=== PATIENT | male | born 1980 | race Caucasian/White ===

== ENCOUNTER 2024-03-17 14:11 | Outpatient (OUT) | payer OTHER, SELFPAY ==
[2024-03-17 15:31] LABS: Basophils Percent Auto 0.3 % (0.2-2.0); Eosinophils Absolute Auto 0.2 10^3/uL (0.0-0.7); Hematocrit 44.3 % (42.0-54.0); Hemoglobin 15.4 g/dL (14.0-18.0); Immature Granulocytes Abs Auto 0.09 10^3/uL (0.00-0.03); Immature Granulocytes Pct Auto 0.8 % (0.0-0.5); Lymphocytes Absolute Auto 1.6 10^3/uL (1.2-3.8); Lymphocytes Percent Auto 14.3 % (20.5-60.0); Mean Corpuscular HGB Conc 34.8 g/dL (29.9-35.2); Mean Corpuscular Hemoglobin 29.2 pg (25.9-34.0); Mean Corpuscular Volume 84.1 fL (80.0-94.0); Monocytes Absolute Auto 1.1 10^3/uL (0.3-0.8); Monocytes Percent Auto 9.5 % (1.7-12.0); Neutrophils Absolute Auto 8.3 10^3/uL (1.4-6.5); Neutrophils Percent Auto 73.1 % (43.0-75.0); Platelet Count 231 10^3/uL (150-450); Red Blood Count 5.27 10^6/uL (4.70-6.10); Red Cell Distribution Width 13.3 % (11.0-15.0); White Blood Count 11.3 10^3/uL (4.0-11.0)
[2024-03-17 15:55] LABS: INR 0.97; Partial Thromboplastin Time 29.2 sec (22.3-36.2); Prothrombin Time 10.3 sec (9.0-11.6)
[2024-03-17 15:56] LABS: Calcium 8.8 mg/dL (8.5-10.1); Carbon Dioxide 27.5 mmol/L (21.0-32.0); Chloride 105 mmol/L (98-107); Estimated GFR (African America >60 (>=60 mL/min/1.73m^2); Estimated GFR (Non-African Ame >60 (>=60 mL/min/1.73m^2); Glucose 95 mg/dL (74-106); Potassium 3.5 mmol/L (3.5-5.1); Sodium 144 mmol/L (136-145)
== END 2024-03-17 14:12 | disposition home or self-care (01) ==
LOC: PST 14:16
PROVIDERS: PCP Family Medicine; Visit Provider Urology
DX: Z01.812 Encounter for preprocedural laboratory examination (principal); N47.1 Phimosis; N47.6 Balanoposthitis
CPT/HCPCS: 36415; 80048; 85025; 85610; 85730

== ENCOUNTER 2024-03-24 12:26 | Day surgery (SDC) | payer OTHER, SELFPAY ==
[2024-03-17 15:01] VITALS: BP 116/76; PULSE 64; TEMP 36.4; O2SAT 99; BMI 41.8
[2024-03-24] VITALS (13 sets, daily range): BP systolic 121–166; BP diastolic 75–109; PULSE 69–102; TEMP 36.2–36.7; O2SAT 90–98; BMI 41.8; BMI 42.1
--- OUTSIDE RECORDS SUMMARY | 2024-03-24 12:29 | XMS_ITS | CCD ---
Author Organization [facility] Care Team Providers Care Blueberry Grower Name Role Phone Zuleima Horton MD Primary Care Provider LEYDA RICARDO Attending Unavailable INGRID DEL REAL Referring Unavailable ZULEIMA HORTON Primary Care Unavailable ZULEIMA HORTON Primary Care Physician Dwight MANZANO Attending Unavailable Dwight MANZANO Attending Unavailable Dwight MANZANO Attending Unavailable Zuleima Horton MD Primary Care Provider PUMP, INGRID Attending Unavailable PUMP, INGRID Attending Unavailable ZULEIMA HORTON Attending Unavailable MATIAS WARREN Attending Unavailable MATIAS WARREN Referring Unavailable Medications Current Medications Medication Drug Class(es) Dates Sig (Normalized) Sig (Original) ascorbic acid 500 mg chewable tablet (3 sources) Vitamin C ascorbic acid (Vitamin C) 500 MG chewable tablet Chew Active hydrocortisone 25 mg/ml topical cream (1 source) Corticosteroid Start: 03-20-2023 hydrocortisone (ANUSOL-HC) 2.5 % rectal cream Insert 1 Application into the rectum in the morning. 0 03/20/2023 Active Magnesium (3 sources) Magnesium 400 MG capsule Take by mouth Active predniSONE 10 mg oral tablet (2 sources) Start: 03-10-2024 predniSONE (Deltasone) 10 MG tablet Indications: Calcific Achilles tendinitis of right lower extremity , Inflammatory heel pain, right , Calcaneal spur, right , Difficulty walking 1 tablet twice daily x 7 days; followed by 1 tablet daily as directed until complete 21 tablet 03/10/2024 Active triamcinolone acetonide 0.001 mg/mg topical ointment (4 sources) Corticosteroid Start: 03-07-2024 triamcinolone Top 0.1% Oint See Instructions, Refill(s) 0 Start Date: 03/07/24 Status: Ordered Start: 01-20-2024 triamcinolone (Kenalog) 0.1 % ointment Indications: Foreskin problem , Foreskin adhesions Apply topically 2 (two) times a day To affected area, small amt 30 g 01/20/2024 Active Completed/Discontinued Medications Medication Drug Class(es) Dates Sig (Normalized) Sig (Original) buPROPion hydrochloride 75 mg oral tablet (1 source) Aminoketone End: 05-08-2023 take 1 tablet by mouth in the morning buPROPion (WELLBUTRIN) 75 mg tablet Take 75 mg by mouth in the morning. 0 05/08/2023 Discontinued (Patient Stopped On Own) escitalopram 5 mg oral tablet (1 source) Serotonin Reuptake Inhibitor End: 05-08-2023 take 1 tablet by mouth in the morning escitalopram (LEXAPRO) 5 mg tablet Take 5 mg by mouth in the morning. 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] Onset: 03-07-2024 Chronic Mood disorders (3 sources) Major depression, single episode; Translations: [Major depressive disorder, single episode, unspecified] Onset: 03-19-2023 03-19-2023 Chronic Other connective tissue disease (2 sources) Calcific tendinitis of right achilles tendon; Translations: [Calcific tendinitis, other site] 03-10-2024 Episodic Other connective tissue disease (2 sources) Heel pain; Translations: [Pain in right foot] 03-10-2024 Episodic Other connective tissue disease (2 sources) Calcaneal spur of right foot; Translations: [Calcaneal spur, right foot] 03-10-2024 Episodic Other ear and sense organ disorders (3 sources) Hearing loss in left ear; Translations: [Unspecified hearing loss, left ear] Onset: 03-19-2023 03-19-2023 Chronic Other ear and sense organ disorders (3 sources) Sensorineural hearing loss, unilateral, left ear, with unrestricted hearing on the contralateral side; Translations: [Sensorineural hearing loss, unilateral] Onset: 03-19-2023 03-19-2023 Chronic Other endocrine disorders (4 sources) Male hypogonadism; Translations: [Testicular hypofunction] Onset: 09-20-2021 09-24-2021 Chronic Other male genital disorders (2 sources) Phimosis; Translations: [Phimosis] Onset: 03-07-2024 Episodic Other nervous system disorders (3 sources) Carpal tunnel syndrome of right wrist; Translations: [Carpal tunnel syndrome, right upper limb] Onset: 03-19-2023 03-19-2023 Chronic Other nervous system disorders (2 sources) Difficulty walking; Translations: [Difficulty in walking, not elsewhere classified] 03-10-2024 Chronic Residual codes; unclassified (1 source) Tobacco user 03-06-2024 Episodic Past or Other Problems Problem Classification Problem Date Documented Da te Episodic/Chronic Other ear and sense organ disorders (3 sources) Bilateral tinnitus; Translations: [Tinnitus, bilateral] Onset: 03-19-2023 03-19-2023 Episodic Results Test Name Value Interpretation Reference Range Facility XR Foot - right 3 [facility] Result: 3 views right foot: Weight-bearing: Lateral, oblique, calcaneal axial: 03/10/2024: Unremarkable for acute osseous or joint pathology. Unremarkable for fracture, stress fracture, cystic, erosive or lytic changes of the calcaneus. Calcification at the insertion of the Achilles tendon with mild localized soft tissue swelling, without soft tissue emphysema. Well-formed enthesophyte at the insertion of the plantar fascia. [facility] Ambulatory Visit Summaryon 1 05-07-2023 Ambulatory Visit Summary Ambulatory Visit Summary PALMIRAHUGO MOORE Eunice :1980 Visit Date:03/07/2024 Ambulatory Visit Instructions Your Diagnosis Phimosis Balanoposthitis Your Care Team Attending Physician - MICHELET MOSER, Dwight Segovia Primary Care Physician - ZULEIMA HORTON This Is Your Medications List Contact prescribing physician if questions or concerns triamcinolone topical (triamcinolone Top 0.1% Oint) Procedures Performed Appendectomy (12/14/2003), Anxiety, Bilateral tinnitus, Carpal tunnel syndrome of right wrist, Depression, Hearing loss in left ear, Hypogonadism, Sensorineural hearing loss in right ear. What to do next Scheduled Follow-Up Appointments Thursday 10:15 AM EST With: Dwight MANZANO MD Where: [facility] [address] [place] [address]- You Need to Schedule the Following Appointments Follow Up with Dwight MANZANO MD, URL When: Where: [facility] [address], [facility] [place] [address]- Medications What How Much When Instructions Unchanged triamcinolone topical (triamcinolone Top 0.1% Oint) See instructions Contact prescribing physician if questions or concerns Allergies No Known Allergies Problems Ongoing - Any problem that you are currently receiving treatment for. Balanoposthitis Phimosis Patient Survey You may receive a survey via text or e-mail asking about your office visit. Please share your experience with us by completing your survey. We appreciate your feedback and thank you for choosing us for your care. Education Materials Circumcision Information Male infants are born with a fold of skin that covers the head of the penis (foreskin). This fold of skin is often removed shortly after with a surgery that is called circumcision. A circumcision may be done by a health care provider who is involved in care or by a specialist who cares for the urinary tract (urologist). Circumcisions may also be done in non-medical settings for samaritan or cultural reasons. Who should be circumcised? The decision to leave the foreskin on or to have it removed is a personal one. It is often based on samaritan, social, or cultural beliefs. Circumcision is most often done in the first few days of life, but it may also be done later in life. In general: ??? All healthy boys with a normal penis formation can be circumcised in the first few days after . ??? Boys who are born early (prematurely) or who are ill should not be circumcised until they are older and stronger. ??? Boys with certain deformities of the penis or deformities of the opening of the penis (urethra) should not be circumcised. How is circumcision done? The penis and the area around it are cleansed well. ??? An injection may be given to numb the area. A numbing cream may be applied to the area. ??? A special clamp or ring is attached to the penis and used to remove the foreskin. ??? The area is then cleansed well again. ??? Medicine and gauze are applied to it. What are the benefits of circumcision? When the foreskin is removed: ??? The head of the penis is easier to wash. This lowers the risk for odors, swelling, and infection. ??? Some men are less likely to: ? Carry the virus that causes genital warts (human papillomavirus or HPV). ? Contract human immunodeficiency virus (HIV). ? Develop cancer of the penis. ? Get urinary infections. ? Develop inflammation of the penis. What are the risks of circumcision? Circumcision is a safe procedure. However, problems may occur, including: ??? Infection. ??? Bleeding. ??? Removal of too much or too little foreskin. This affects the appearance of the penis. ??? Irritation and narrowing of the urinary opening. This is usually short term. ??? Scarring of the penis. This may affect the way the penis functions. Where to find more information ??? [employer] ([employer]), Male Circumcision: acog.org Summary ??? Male infants are born with a fold of skin that covers the head of the penis. This fold of skin is often removed shortly after with a surgery that is called circumcision. ??? When the foreskin is removed, the head of the penis is easier to wash and keep clean. ??? Some men who are circumcised are less likely to carry viruses, get urinary infections, or develop cancer of the penis. ??? Circumcision is a safe procedure. However, problems may occur, including infection, bleeding, scarring, and irritation and narrowing of the opening of the penis. This information is not intended to replace advice given to you by your health care provider. Make sure you discuss any questions you have with your health care provider. Document Revised: 04/21/2022 Document Reviewed: 04/21/2022 [employer] Patient Education ??? (more content not included)... Normal [facility] Complete Blood Counton 06-21 Erythrocyte distribution width (RBC) [Ratio] 13.2 % Normal 11.0-15.0 [facility] Specialist Comment on above: Performed By: #### T SH, CBC, CMP, TEST, FT4, LIPD #### [facility] [address], [place] [id number] Hematocrit (Bld) [Volume fraction] 44.9 % Normal 38.5-50.0 [facility] Specialist Comment on above: Performed By: #### T SH, CBC, CMP, TEST, FT4, LIPD #### [facility] [address], [place] [id number] Hemoglobin (Bld) [Mass/Vol] 15.0 g/dL Normal 13.0-17.1 [facility] Specialist Comment on above: Performed By: #### T SH, CBC, CMP, TEST, FT4, LIPD #### [facility] [address], [place] [id number] MCH (RBC) [Entitic mass] 28.1 pg Normal 27.0-33.0 [facility] Specialist Comment on above: Performed By: #### T SH, CBC, CMP, TEST, FT4, LIPD #### [facility] [address], [place] [id number] MCHC (RBC) [Mass/Vol] 33.4 g/dL Normal 32.0-36.0 [facility] Specialist Comment on above: Performed By: #### T SH, CBC, CMP, TEST, FT4, LIPD #### [facility] [address], [place] [id number] MCV (RBC) [Entitic vol] 84 fL Normal 80-100 [facility] Specialist Comment on above: Performed By: #### T SH, CBC, CMP, TEST, FT4, LIPD #### [facility] [address], [place] [id number] Platelet mean volume (Bld) [Entitic vol] 9.50 fL Normal 7.50-12.50 [facility] Specialist Comment on above: Performed By: #### T SH, CBC, CMP, TEST, FT4, LIPD #### [facility] [address], [place] [id number] Platelets (Bld) [#/Vol] 258 10*3/uL Normal 140-400 [facility] Comment on above: Performed By: #### T SH, CBC, CMP, TEST, FT4, LIPD #### [facility] [address], [place] [id number] RBC (Bld) [#/Vol] 5.34 10*6/uL Normal 4.20-5.80 [facility] Comment on above: Performed By: #### T SH, CBC, CMP, TEST, FT4, LIPD #### [facility] [address], [place] [id number] RDW-SD 40.4 fL Normal 37.0-50.0 [facility] Comment on above: Performed By: #### T SH, CBC, CMP, TEST, FT4, LIPD #### [facility] [address], [place] [id number] WBC (Bld) [#/Vol] 6.4 10*3/uL Normal 3.8-11.0 [facility] Specialist Comment on above: Performed By: #### T SH, CBC, CMP, TEST, FT4, LIPD #### [facility] [address], [place] [id number] Comprehensive Metabolic Pane rikki 06-21-2021 Albumin [Mass/Vol] 4.4 g/dL Normal 3.6-5.1 [facility] Specialist Comment on above: Performed By: #### T SH, CBC, CMP, TEST, FT4, LIPD #### [facility] [address], [place] [id number] Albumin/Globulin [Mass ratio] 1.9 {ratio} Normal 1.0-2.5 [facility] Comment on above: Performed By: #### T SH, CBC, CMP, TEST, FT4, LIPD #### [facility] [address], [place] [id number] ALP [Catalytic activity/Vol] 89 U/L Normal 40-129 [facility] Specialist Comment on above: Performed By: #### T SH, CBC, CMP, TEST, FT4, LIPD #### [facility] [address], [place] [id number] ALT [Catalytic activity/Vol] 41 U/L Normal 9-46 [facility] Specialist Comment on above: Result Comment: 04/03 Female reference range changed. Performed By: #### T SH, CBC, CMP, TEST, FT4, LIPD #### [facility] [address], [place] [id number] Anion gap [Moles/Vol] 17 mmol/L Normal 12-20 [facility] Specialist Comment on above: Result Comment: Effe ctive 05/09/2019 reference range changed. Performed By: #### T SH, CBC, CMP, TEST, FT4, LIPD #### [facility] [address], [place] [id number] AST [Catalytic activity/Vol] 25 U/L Normal 10-40 [facility] Specialist Comment on above: Performed By: #### T SH, CBC, CMP, TEST, FT4, LIPD #### [facility] [address], [place] [id number] Bilirubin [Mass/Vol] 0.44 mg/dL Normal 0.30-1.20 [facility] Comment on above: Performed By: #### T SH, CBC, CMP, TEST, FT4, LIPD #### [facility] [address], [place] [id number] BUN/CREA 32 Ratio High 6-22 [facility] Comment on above: Performed By: #### T SH, CBC, CMP, TEST, FT4, LIPD #### [facility] [address], [place] [id number] Calcium [Mass/Vol] 9.3 mg/dL Normal 8.6-10.2 [facility] Comment on above: Performed By: #### T SH, CBC, CMP, TEST, FT4, LIPD #### [facility] [address], [place] [id number] Chloride [Moles/Vol] 106 mmol/L Normal 98-107 [facility] Comment on above: Performed By: #### T SH, CBC, CMP, TEST, FT4, LIPD #### [facility] [address], [place] [id number] CO2 [Moles/Vol] 24 mmol/L Normal 20-31 [facility] Comment on above: Performed By: #### T SH, CBC, CMP, TEST, FT4, LIPD #### [facility] [address], [place] [id number] Creatinine [Mass/Vol] 0.6 mg/dL Low 0.7-1.4 [facility] Comment on above: Performed By: #### T SH, CBC, CMP, TEST, FT4, LIPD #### [facility] [address], [place] [id number] eGFRAA 172 mL/min/1.73m2 Normal >60 [facility] Comment on above: Performed By: #### T SH, CBC, CMP, TEST, FT4, LIPD #### [facility] [address], [place] [id number] eGFRNAA 142 mL/min/1.73m2 Normal >60 [facility] Comment on above: Performed By: #### T SH, CBC, CMP, TEST, FT4, LIPD #### [facility] [address], [place] [id number] Globulin (S) [Mass/Vol] 2.3 g/dL Normal 1.9-3.7 [facility] Comment on above: Performed By: #### T SH, CBC, CMP, TEST, FT4, LIPD #### [facility] [address], [place] [id number] Glucose [Mass/Vol] 92 mg/dL Normal 65-99 [facility] Comment on above: Result Comment: For FASTING Glucose --- ADA reference ranges: Normal 65-99 mg/dl Prediabetes 100-125 Diabetes >/= 126 Performed By: #### T SH, CBC, CMP, TEST, FT4, LIPD #### [facility] [address], [place] [id number] Potassium [Moles/Vol] 4.3 mmol/L Normal 3.5-5.5 [facility] Comment on above: Performed By: #### T SH, CBC, CMP, TEST, FT4, LIPD #### [facility] [address], [place] [id number] Protein [Mass/Vol] 6.7 g/dL Normal 6.1-8.1 [facility] [place] [employer] Comment on above: Performed By: #### T SH, CBC, CMP, TEST, FT4, LIPD #### [facility] [address], [place] [id number] Sodium [Moles/Vol] 142 mmol/L Normal 135-146 [facility] [place] [employer] Comment on above: Performed By: #### T SH, CBC, CMP, TEST, FT4, LIPD #### [facility] [address], [place] [id number] Urea nitrogen [Mass/Vol] 20 mg/dL Normal 7-25 [facility] [employer] Production Assistant Comment on above: Performed By: #### T SH, CBC, CMP, TEST, FT4, LIPD #### [facility] [address], [place] [id number] Free T4on 06-21-2021 Free T4 [Mass/Vol] 0.86 ng/dL Normal 0.80-1.80 [facility] [facility] [place] [employer] Comment on above: Performed By: #### T SH, CBC, CMP, TEST, FT4, LIPD #### [facility] [address], [place] [id number] Lipid Panelon 06-21-2021 Cholesterol [Mass/Vol] 136 mg/dL Normal 125-200 [facility] [employer] Comment on above: Result Comment: Low risk < 200mg/dL Borderline risk 201-239 mg/dl High risk > or equal to 240 Performed By: #### T SH, CBC, CMP, TEST, FT4, LIPD #### [facility] [address], [place] [id number] Cholesterol in HDL [Mass/Vol] 39 mg/dL Low >40 [facility] [employer] Comment on above: Result Comment: High Cardiovascular Risk HDL <40 mg/dL Low Cardiovascular Risk HDL > or equal to 60 mg/dl Performed By: #### T SH, CBC, CMP, TEST, FT4, LIPD #### [facility] [address], [place] [id number] Cholesterol in LDL [Mass/Vol] 74 mg/dL Normal [place] [employer] Comment on above: Result Comment: LDL ATP III CLASSIFICATION LDL less than 100 mg/dl Optimal LDL 100-129 mg/dl Near or above optimal LDL 130-159 Borderline high LDL 160-189 High LDL greater than 189 mg/dl Very High Performed By: #### T SH, CBC, CMP, TEST, FT4, LIPD #### [facility] [address], [place] [id number] Cholesterol in VLDL [Mass/Vol] 23 mg/dL Normal [facility] Comment on above: Performed By: #### T SH, CBC, CMP, TEST, FT4, LIPD #### [facility] [address], [place] [id number] Cholesterol.total/Ch olesterol in HDL [Mass ratio] 3 {ratio} Normal [facility] Comment on above: Performed By: #### T SH, CBC, CMP, TEST, FT4, LIPD #### [facility] [address], [place] [id number] Triglyceride [Mass/Vol] 114 mg/dL Normal 30-150 [facility] Specialist Comment on above: Result Comment: TRIG ATPIII CLASSIFICATIONS TRIG less than 150 mg/dl Normal TRIG 150-199 mg/dl Borderline High TRIG 200-500 mg/dl High TRIG greather than 500 mg/dl Very High Performed By: #### T SH, CBC, CMP, TEST, FT4, LIPD #### [facility] [address], [place] [id number] TSHon 06-21-2021 TSH 1.650 uIU/mL Normal 0.400-4.500 [facility] [employer] [facility] Comment on above: Performed By: #### T SH, CBC, CMP, TEST, FT4, LIPD #### [facility] [address], [place] [id number] Testosteroneon 06-21-2021 TESTOS 226.30 ng/dL Low 249.00-836.00 [facility] Specialist Comment on above: Performed By: #### T SH, CBC, CMP, TEST, FT4, LIPD #### [facility] [address], [place] [id number] Vital Signs Date Time Vital Sign Value Performing Clinician Opal holder 03-10-2024 13:11-0500 Body height 172.7 cm Matias Kelvin DPM Work Phone: [facility] 03-10-2024 13:11-0500 Body mass index (BMI) [Ratio] 40.26 kg/m2 Matias Warren DPM Work Phone: [facility] 03-10-2024 [id number] Body weight 120.11 kg Matias Rus DPM Work Phone: [facility] 05-08-2023 11:04-0500 Body height 170.2 cm Leyda Ricardo ELEVATOR SERVICE TECHNICIAN-COMMUNICATIONS STATION MANAGER Work Phone: [facility] 05-08-2023 11:04-0500 Body mass index (BMI) [Ratio] 43.29 kg/m2 LeydaPactas GmbHoll ELEVATOR SERVICE TECHNICIAN-COMMUNICATIONS STATION MANAGER Work Phone: [facility] 05-08-2023 11:04-0500 Body weight 125.37 kg Leyda Ricardo ELEVATOR SERVICE TECHNICIAN-COMMUNICATIONS STATION MANAGER Work Phone: [facility] 05-08-2023 11:04-0500 Diastolic blood pressure 105 mm[Hg] LeydaGrowisholl ELEVATOR SERVICE TECHNICIAN-COMMUNICATIONS STATION MANAGER Work Phone: [facility] [place] [employer] 05-08-2023 11:04-0500 Heart rate 70 /min LeydaGrowisholl ELEVATOR SERVICE TECHNICIAN-COMMUNICATIONS STATION MANAGER Work Phone: [facility] [employer] 05-08-2023 11:04-0500 Systolic blood pressure 162 mm[Hg] LeydaGrowisholl ELEVATOR SERVICE TECHNICIAN-COMMUNICATIONS STATION MANAGER Work Phone: [facility] Encounters Encounter Date Encounter Type Care Provider Facility Start: 04-22-2024 ambulatory Dwight Medina ty:[facility] Start: 03-24-2024 ambulatory Dwight Garridoi ty:[id number] Start: 03-10-2024 End: 03-10-2024 Bamboo flowsheet Matias Warren DPM Work Phone: [facility] Start: 03-10-2024 End: 03-10-2024 Bamboo flowsheet Matias Warren DPM Work Phone: [facility] Start: 03-10-2024 End: 03-10-2024 Office outpatient new 45 minutes Matias Warren DPM Work Phone: [facility] Comment on above: Calcific Achilles te ndinitis of right lower extremity (Primary Dx); Inflammatory heel pain, right; Calcaneal spur, right; Difficulty walking Start: 03-10-2024 End: 03-10-2024 ambulatory MATIAS WARREN Not Available Start: 03-07-2024 ambulatory Dwight MANZANO Facility :[facility] Start: 03-07-2024 End: 03-07-2024 ambulatory Dwight MANZANO Facility:[facility] Start: 03-07-2024 End: 03-07-2024 Patient encounter procedure Dwight MANZANO [facility] Start: 01-20-2024 End: 01-20-2024 ambulatory ZULEIMA B WONDERLY Not Available Start: 07-31-2023 End: 07-31-2023 ambulatory INGRID PUMP Not Available Start: 05-08-2023 End: 05-08-2023 ambulatory [facility] Start: 05-08-2023 End: 05-08-2023 Office outpatient new 30 minutes [facility] ELEVATOR SERVICE TECHNICIAN-COMMUNICATIONS STATION MANAGER Work Phone: [facility] Comment on above: Hemorrhoids, unspeci fied hemorrhoid type (Primary Dx) Start: 03-20-2023 End: 03-20-2023 ambulatory INGRID PUMP Not Available Procedures Date Procedure Procedure Detail Performing Clinician Start: 03-10-2024 Radex foot complete minimum 3 views Matias Warren DPM Work Phone: Start: 12-14-2003 Appendectomy Dwight CARDOSO Anxiety (finding) Dwight CARDOSO Bilateral tinnitus (finding) Dwight MANZANO Carpal tunnel syndro me of right wrist (disorder) Dwight MANZANO Depressive disorder (disorder) Dwight MANZANO Hearing loss in left ear (disorder) Dwight MANZANO Hypogonadism (disorder) Maureen MANZANO Sensorineural hearin g loss in right ear (disorder) Dwight MANZANO Plan of Treatment Date Care Activity Detail Author Start: 05-08-2024 Adult BMI Screening Adult BMI Screen ing [facility] Start: 05-08-2024 Tobacco Screening Tobacco Screening [facility] Start: 03-30-2024 End: 03-30-2024 Patient encounter procedure 03/30/2024 3:45 PM EST Office Visit [facility] [address] [place] [id number] Matias Warren DPM [address] [place] [address] [facility] Start: 03-16-2024 Influenza vaccination Influenza Vacc ine (#1) [facility] Comment on above: Postponed from 01/02 (Patient Refused) Start: 03-10-2024 End: 03-10-2024 Patient encounter procedure 03/10/2024 1:15 PM EST Office Visit [facility] [address] [place] [id number] Matias Warren DPM [address] [place] [address] Arrived [facility] Comment on above: Arrived Start: 01-02-2023 COVID-19 Vaccine ( season) COVID-19 Vaccine ( season) [facility] Start: 01-02-2023 Influenza vaccination Influenza Vacc ine [facility] Start: 03-02-2021 DTaP,Tdap and Td Vaccines (2 - Td or Tdap) DTaP,Tdap and Td Vaccines (2 - Td or Tdap) [facility] Start: 07-26-1999 Adult BMI Follow Up Plan Adult BMI Follow Up Plan [facility] Start: 1993 Depression Screening Depression Scre bon [facility] Start: 1981 Tobacco Counseling Tobacco Counselin valdez [facility] Immunizations Immunization Date Immunization Notes Care Provider Fa cility 05-30-2021 SARS-CoV-2 (COVID-19 ) mRNA BNT-162b2 vax Dwight MANZANO [facility] 05-07-2021 SARS-CoV-2 (COVID-19 ) mRNA BNT-162b2 vax Dwight MANZANO [facility] 03-02-2011 tetanus toxoid, redu alejandra diphtheria toxoid, and acellular pertussis vaccine, adsorbed Dwight MANZANO [facility] Payers Date Payer Category Payer Private Health Insurance [id number] 2013 Private Health Insurance [id number] 1981 Unknown [id number] 1981 Unknown [id number] 1981 Unknown [id number] 1981 Unknown [id number] [id number] 1981 Unknown [id number] [id number] 1981 Unknown [id number] [id number] 1981 Unknown [id number] Social History Date Type Detail Facility Start: 05-08-2023 End: 03-10-2024 Tobacco smoking status NHIS Occasional tobacco smoker [facility] History of tobacco use Cigarette Smoker [facility] Start: 05-08-2023 End: 03-10-2024 Tobacco use and exposure Smokeless tobacco non-user [facility] Start: 05-08-2023 Alcohol intake Ex-drinker (finding) [facility] Start: 05-08-2023 End: 01-20-2024 History of Social function [facility] Start: 05-08-2023 End: 01-20-2024 Tobacco use panel [facility] Housing Instability Unknown [facility] Start: 1980 Sex Assigned At Not on file [facility] Start: 03-07-2024 Tobacco smoking status Light t obacco smoker (finding) [facility] Start: 01-20-2024 End: 03-10-2024 Alcoholic beverage intake Current drinker of alcohol (finding) [facility] How often to you hav e a drink containing alcohol? Monthly or less [facility] How many standard dr inks containing alcohol do you have on a typical day? 1 or 2 [facility] How often do you hav e 6 or more drinks on 1 occasion? Never [facility] Start: 03-19-2023 Tobacco Comment Start smokin15 years old [facility] Start: 03-19-2023 Alcohol Comment Caffeine intak e: 1-2 cups per day [facility] Clinical Notes 08-14-2021 to 03-10-2024 Matias Warren DPM - 03/10/2024 1:15 PM ESTPatient Jv Ricardo APRN-COMMUNICATIONS STATION MANAGER - 05/08/2023 11:00 AM EST Note Date & Type Note Facility 03-10-2024 History of Present illness Narrative Images from the original note were not included. Subjective Patient ID: Hugo Henderson is a 43 y.o. 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 NKI. Pt states woke up one day and it was hurting. Has tried stretching, frozen water bottle massage. Relates throbbing pain. No recent xrays. SS: 9.5-10). HPI Initial patient encounter and assessment. Chief complaint: Posterior heel pain/Achilles tendinopathy like symptoms right foot. Sub-acute onset without known injury or trauma; symptomatic over the past month or so, impacting ADLs and walking activity. Denies pop or snap sensation. Relates no recent change in activity or shoe gear. First such episode of this nature. Describes fairly sharp pain, occasionally throbbing pain, well localized to the Achilles tendon insertion/posterior heel; somewhat sharper with 1st step pain and post static dyskinesia. Has noted mild localized swelling, without erythema, discoloration, dysesthesias or radicular pain. Unresponsive to ice massage, stretching, OTC NSAIDs etc.. Left foot and ankle are symptom-free. Medications Current Outpatient Medications: ascorbic acid (Vitamin C) 500 MG chewable tablet, Chew, Disp: , Rfl: Magnesium 400 MG capsule, Take by mouth, Disp: , Rfl: triamcinolone (Kenalog) 0.1 % ointment, Apply topically 2 (two) times a day To affected area, small amt, Disp: 30 g, Rfl: 0 Allergies Patient has no known allergies. Past Surgical History Past Surgical History: Procedure Laterality Date APPENDECTOMY 12/14/2003 Dr Duque Family History Family History Problem Relation Name Age of Onset Seizures Mother Cancer Maternal Grandfather Heart disease Paternal Grandfather Objective GENERAL ASSESSMENT: Alert and oriented. Pleasant disposition. Wearing Hey dudes footwear. Vascular: DP 2/4 bilateral. PT 2/4 bilateral. CFT brisk all digits. Gradient temperature: Warm-warm bilateral. Unremarkable for ankle edema. Neurologic: Tactile and light touch sensation intact. Negative Tinel's along the tarsal canal. Dermatologic: Skin turgor is good. Web space areas are clean, dry, non-inflamed. Unremarkable for eczema or dermatitis. Orthopedic: RANGE OF MOTION: Passive ankle dorsiflexion is limited, consistent with mild gastrocnemius equinus. Otherwise maintains functional ankle, subtalar and 1st MTP joint range of motion. Lesion pattern: No forefoot or digital discrete keratotic lesions are noted. Focused exam right foot and ankle: Sharp point tenderness over the posterior calcaneus/Achilles tendon insertion; particularly over the medial and lateral insertional expanse, with mild localized swelling without warmth or erythema. Lateral squeeze of the calcaneus non-tender. Posterior joint line non-tender. Watershed zone non-tender. Plantar structures non-tender. Achilles tendon function 5/5 against resistance without symptoms. Radiology: 3 views right foot: Weight-bearing: Lateral, oblique, calcaneal axial: 03/10/2024: Unremarkable for acute osseous or joint pathology. Unremarkable fracture, stress fracture, cystic, erosive or lytic changes of the calcaneus. Calcification at the insertion of the Achilles tendon; with mild localized soft tissue swelling without soft tissue emphysema. Well-formed enthesophyte at the insertion of the plantar fascia. 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 Plan: Review of clinical and x-ray findings, differential diagnosis, etiology and contributing/aggravating factors, treatment strategy, rationale and objectives. Prednisone taper dose. Achilles tendon eccentric stretching exercises as directed. Discussed purchase of plantar fascial/Achilles tendon night splint. Sizing and fitting of Powerstep orthoses with 1/4 heel lift bilateral. Discussed use of topical agents: Salon Pas patches, Voltaren gel, Aspercreme, Biofreeze etc. Procedure: This note was created with the assistance of a speech recognition program. While intending to generate a timely document that accurately reflects the content of the visit, no guarantee can be provided that every grammatical or spelling mistake has been or will be identified or corrected. Thank you for your understanding. Matias Warren DPM documented in this encounter [facility] 03-10-2024 Instructions Matias Warren DPM - 03/10/2024 1:15 PM EST As noted documented in this encounter [facility] 03-07-2024 Hospital Discharge instructions Patient Education 03/07/2024 15:25:32 Circumcision Information Circumcision Information Male infants are born with a fold of skin that covers the head of the penis (foreskin). This fold of skin is often removed shortly after with a surgery that is called circumcision. A circumcision may be done by a health care provider who is involved in care or by a specialist who cares for the urinary tract (urologist). Circumcisions may also be done in non-medical settings for samaritan or cultural reasons. Who should be circumcised? The decision to leave the foreskin on or to have it removed is a personal one. It is often based on samaritan, social, or cultural beliefs. Circumcision is most often done in the first few days of life, but it may also be done later in life. In general: All healthy boys with a normal penis formation can be circumcised in the first few days after . Boys who are born early (prematurely) or who are ill should not be circumcised until they are older and stronger. Boys with certain deformities of the penis or deformities of the opening of the penis (urethra) should not be circumcised. How is circumcision done? The penis and the area around it are cleansed well. An injection may be given to numb the area. A numbing cream may be applied to the area. A special clamp or ring is attached to the penis and used to remove the foreskin. The area is then cleansed well again. Medicine and gauze are applied to it. What are the benefits of circumcision? When the foreskin is removed: The head of the penis is easier to wash. This lowers the risk for odors, swelling, and infection. Some men are less likely to: ?Carry the virus that causes genital warts (human papillomavirus or HPV). ?Contract human immunodeficiency virus (HIV). ?Develop cancer of the penis. ?Get urinary infections. ?Develop inflammation of the penis. What are the risks of circumcision? Circumcision is a safe procedure. However, problems may occur, including: Infection. Bleeding. Removal of too much or too little foreskin. This affects the appearance of the penis. Irritation and narrowing of the urinary opening. This is usually short term. Scarring of the penis. This may affect the way the penis functions. Where to find more information [employer] ([employer]), Male Circumcision: [email or web address].org Summary Male infants are born with a fold of skin that covers the head of the penis. This fold of skin is often removed shortly after with a surgery that is called circumcision. When the foreskin is removed, the head of the penis is easier to wash and keep clean. Some men who are circumcised are less likely to carry viruses, get urinary infections, or develop cancer of the penis. Circumcision is a safe procedure. However, problems may occur, including infection, bleeding, scarring, and irritation and narrowing of the opening of the penis. This information is not intended to replace advice given to you by your health care provider. Make sure you discuss any questions you have with your health care provider. Document Revised: 04/21/2022 Document Reviewed: 04/21/2022 [employer] Patient Education 2023 [email or web address]. Follow Up Care 01/21/2024 09:52:29 With:MICHELET MOSER, Dwight Segovia, URL Address: [facility] [address] [place] [address]- When: Unknown [facility] 03-07-2024 Note Urology Office/Clini c Note HPI Staff Referral for circumcision by Dr. Horton. Dysuria: denies Incomplete bladder emptying: denies Hematuria: denies Frequency: depends on fluid intake, pt thinks around 4x per day Urgency: denies Nocturia: sometimes 1x per night Stream: good stream Leaking: denies Post void dripping: denies Wearing pads/ Depends: denies Urge incontinence: denies Stress incontinence: denies Incontinence without Sensory Awareness: denies Abdominal pain: denies Flank pain: denies Sexual complaints: pt has adhesions on foreskin that has been causing problems/discomfort. Was prescribed triamcinolone cream for this History of Present Illness Tests reviewed: UA, referral records I have reviewed the previous health record information and history for this patient from Dr. Horton. I have reviewed and verified the staff HPI to be accurate for this encounter. Review of Systems ROS - Provider Constitutional: denies weight loss, denies hot flashes. Eyes: denies eye problems. Gastrointestinal: denies nausea, denies vomiting. Cardiovascular: denies chest pain or angina. Integumentary: no dryness Musculoskeletal: denies musculoskeletal symptoms. ENMT: denies otolaryngeal symptoms. Respiratory: no shortness of breath. Heme/Lymph: denies easy bleeding tendency, denies easy bruising tendency. Psychiatric: no confusion, no anxiety. Genitourinary: See HPI. Physical Exam General Appearance: alert, no distress, well nourished, well developed male. Head: normocephalic . Eyes: normal orbit and globe. ENMT: normal examination of external ears. Chest: Lungs CTA, respirations non labored. Cardiovascular: regular rate and rhythm. Abdomen: soft, non distended, no tenderness, no mass or organomegaly, no hernia. Genitourinary: ____. able to retract foreskin, this can worsen over time. foreskin again recommended. Lymph Nodes: unremarkable palpation of the cervical area. Skin: warm, dry, no bruising. Psychiatric: cooperative, affect appropriate for age, normal judgement, euthymic mood. Penis: thick redundant foreskin. tight . painful to retract foreskin over shaft. Assessment/Plan Hugo is a 43 yo male new pt referred by Dr. Horton for circumcision. Pt does lots of strenuous activity for work, also must shower daily after work. Pt accompanied by an adult female today. Pt is not diabetic and no fam hx. 1. Phimosis (N47.1: Phimosis) UA neg. Was not circumcised at . Feels foreskin is become tighter. Has tried triamcinolone through PCP. Shares grandfather was not circumcised at either and later caused him issues requiring circumcision. Explained the best tx would be circumcision, pt is interested. At least 4 wks off work recommended. Pt is amenable to this and wishes to schedule circumcision. Pt also needs carpal tunnel surgery. Recommended scheduling this w/in his 4 wk rest period to limit the amount of time off from work he will require. PE: thick redundant tight foreskin____. able to retract foreskin, this can worsen over time. circumcision again recommended. Will schedule Circumcision. The procedure risks, benefits, and details have been discussed with the patient. These include bleeding, infection, potential separation of the skin edges (which will heal in), change in penile sensation which may affect sexual intercourse and erections, as well as the need for additional procedures, among others. Full informed consent has been obtained. Will order General anesthesia. 2. 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 Follow-up With When Contact Information Dwight MANZANO MD, URL [facility] [address], [place] [address]- Additional Instructions: schedule Circumcision Patient Education Circumcision Information I, Jaclyn Gooden, personally scribed for Dr. Manzano on 03/07/2024 15:33:50. . Documentation recorded by the scribe, Jaclyn Gooden, accurately reflects the services(s) I performed and decisions made by me. Authenticated by Dr. Manzano on 03/07/2024 15:36:23. Problem List/Past Medical History Ongoing Balanoposthitis Phimosis Historical No qualifying data Procedure/Surgical History Appendectomy (12/14/2003), Anxiety, Bilateral tinnitus, Carpal tunnel syndrome of right wrist, Depression, Hearing loss in left ear, Hypogonadism, Sensorineural hearing loss in right ear. Medications triamcinolone Top 0.1% Oint, See Instructions Allergies No Known Allergies Social History Alcohol Current. Beer. 1-2 times per month., 03/06/2024 Substance Abuse Never., 03/06/2024 Tobacco 4 or less cigarettes(less than 1/4 pack)/day in last 30 days Tobacco Use:. Never Smokeless Tobacco Use:. Cigarettes, 03/07/2024 Family History Cancer - unknown origin: Grandparent. Heart disease: Grandparent. Seizure: Mother. Immunizations Vaccine Date Status SARS-CoV-2 (COVID-19) m (more content not included)... [facility] Comment on above: Result Comment: Elec tronically Signed By: Dwight MANZANO MD\.br\Date and Time Signed: 03/07/24 15:36 EST\.br\Electronically Co-Signed By: Jaclyn Gooden\.br\Date and Time Co-Signed: 03/07/24 15:34 EST 03-07-2024 Note Patient Education Urology Circumcision Information Male infants are born with a fold of skin that covers the head of the penis (foreskin). This fold of skin is often removed shortly after with a surgery that is called circumcision. A circumcision may be done by a health care provider who is involved in care or by a specialist who cares for the urinary tract (urologist). Circumcisions may also be done in non-medical settings for samaritan or cultural reasons. Who should be circumcised? The decision to leave the foreskin on or to have it removed is a personal one. It is often based on samaritan, social, or cultural beliefs. Circumcision is most often done in the first few days of life, but it may also be done later in life. In general: ??? All healthy boys with a normal penis formation can be circumcised in the first few days after . ??? Boys who are born early (prematurely) or who are ill should not be circumcised until they are older and stronger. ??? Boys with certain deformities of the penis or deformities of the opening of the penis (urethra) should not be circumcised. How is circumcision done? The penis and the area around it are cleansed well. ??? An injection may be given to numb the area. A numbing cream may be applied to the area. ??? A special clamp or ring is attached to the penis and used to remove the foreskin. ??? The area is then cleansed well again. ??? Medicine and gauze are applied to it. What are the benefits of circumcision? When the foreskin is removed: ??? The head of the penis is easier to wash. This lowers the risk for odors, swelling, and infection. ??? Some men are less likely to: ? Carry the virus that causes genital warts (human papillomavirus or HPV). ? Contract human immunodeficiency virus (HIV). ? Develop cancer of the penis. ? Get urinary infections. ? Develop inflammation of the penis. What are the risks of circumcision? Circumcision is a safe procedure. However, problems may occur, including: ??? Infection. ??? Bleeding. ??? Removal of too much or too little foreskin. This affects the appearance of the penis. ??? Irritation and narrowing of the urinary opening. This is usually short term. ??? Scarring of the penis. This may affect the way the penis functions. Where to find more information ??? [employer] ([employer]OG), [place] Male Circumcision: [email or web address].org Summary ??? Male infants are born with a fold of skin that covers the head of the penis. This fold of skin is often removed shortly after with a surgery that is called circumcision. ??? When the foreskin is removed, the head of the penis is easier to wash and keep clean. ??? Some men who are circumcised are less likely to carry viruses, get urinary infections, or develop cancer of the penis. ??? Circumcision is a safe procedure. However, problems may occur, including infection, bleeding, scarring, and irritation and narrowing of the opening of the penis. This information is not intended to replace advice given to you by your health care provider. Make sure you discuss any questions you have with your health care provider. Document Revised: 04/21/2022 Document Reviewed: 04/21/2022 [employer] Patient Education ? 2023 [email or web address]. [facility] 05-08-2023 History of Present illness Narrative Images from the original note were not included. Chief Complaint: Hemorrhoids History of Present Illness Hugo Henderson is a 42 y.o. male who presents to the office for hemorrhoids. He has had them for 10 years. They seem to be getting worse. Associated symptoms include bright red blood per rectum, however, this is very infrequent. He reports rectal pain if his hemorrhoids are irritated. He denies any tearing sensation. He denies any constipation, diarrhea, abdominal pain, weight loss. He drinks 64 oz of water daily. He admits to not getting enough fiber in his diet. He drinks 1 cup of coffee daily. He does a lot of heavy lifting between work and splitting wood at home. He has tried OTC creams with little relief. He has not tried any Sitz baths. Review of Systems Constitutional: Negative for fever and unexpected weight change. HENT: Negative for trouble swallowing. Respiratory: Negative for shortness of breath. Cardiovascular: Negative for chest pain and palpitations. Gastrointestinal: Negative for nausea, vomiting, abdominal pain, diarrhea, constipation and black tarry stool. Hemorrhoids Genitourinary: Negative for dysuria and difficulty urinating. Musculoskeletal: Negative for joint swelling and gait problem. Skin: Negative for rash and wound. Allergic/Immunologic: Negative for immunocompromised state. Neurological: Negative for dizziness, weakness and light-headedness. Hematological: Does not bruise/bleed easily. Psychiatric/Behavioral: Negative for behavioral problems and confusion. Past Medical History: Diagnosis Date Anxiety Depression Past Surgical History: Procedure Laterality Date APPENDECTOMY No Known Allergies Current Outpatient Medications: hydrocortisone (ANUSOL-HC) 2.5 % rectal cream, Insert 1 Application into the rectum in the morning., Disp: , Rfl: Social History Socioeconomic History Marital status: Spouse name: Not on file Number of children: Not on file Years of education: Not on file Highest education level: Not on file Occupational History Not on file Tobacco Use Smoking status: Some Days Types: Cigarettes Smokeless tobacco: Never Vaping Use Vaping Use: Never used Substance and Sexual Activity Alcohol use: Not Currently Drug use: Never Sexual activity: Yes Partners: Female Other Topics Concern Not on file Social History Narrative Not on file Social Determinants of Health Financial Resource Strain: Not on file Food Insecurity: Unknown (05/08/2023) Hunger Screening Food Insecurity - Worry: Never True Food Insecurity - Inability: Not on file Transportation Needs: Not on file Physical Activity: Not on file Stress: Not on file Social Connections: Not on file Interpersonal Safety: Not on file Family History Problem Relation Age of Onset Epilepsy Mother Heart disease Father Objective Physical Exam 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 Constitutional: Appearance: Normal appearance. He is obese. HENT: Head: Normocephalic and atraumatic. Mouth/Throat: Mouth: Mucous membranes are moist. Eyes: Pupils: Pupils are equal, round, and reactive to light. Cardiovascular: Rate and Rhythm: Normal rate. Pulmonary: Effort: Pulmonary effort is normal. No respiratory distress. Abdominal: General: There is no distension. Genitourinary: Rectum: External hemorrhoid and internal hemorrhoid present. No tenderness or anal fissure. Normal anal tone. Comments: One small external hemorrhoid in the left lateral position, no prolapsed internal hemorrhoids, no gross blood, there are a few skin tags around the anus. Musculoskeletal: General: Normal range of motion. Cervical back: Normal range of motion. Skin: General: Skin is warm and dry. Neurological: Mental Status: He is alert and oriented to person, place, and time. Mental status is at baseline. Vital Signs: Blood pressure (!) 162/105, pulse 70, height 170.2 cm (5' 7 ), weight 125.4 kg (276 lb 6.4 oz). Respiratory Source: No data recorded Admission Weight: Weight: 125.4 kg (276 lb 6.4 oz) Labs No results found for: WBC , HGB , HCT , MCV , PLT No results found for: GLU , CALCIUM , NA , K , CO2 , CL , BUN , CREATININE No results found for: AMYLASE No results found for: LIPASE No results found for: ALT , AST , GGT , ALKPHOS , LABBILI No results found for: INR , PROTIME Assessment Hugo Henderson is a 42 y.o.male with hemorrhoids. Plan For hemorrhoids, recommended drinking at least 64 oz of water per day, increasing dietary fiber, taking additional fiber supplements such as Metamucil or Benefiber, limiting caffeine intake, avoiding straining, weight loss and sitz baths 3 times daily. 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 He was provided with an informational handout. Follow-up in 4-6 weeks if symptoms persist or worsen. Evaluation included: Preparing to see the patient (e.g., review of tests) Obtaining and/or reviewing separately obtained history Performing a medically appropriate examination and/or evaluation Counseling and educating the patient/family/caregiver Referring and communicating with other health child care specialist Hemorrhoids, unspecified hemorrhoid type [K64.9] JAYME LUI [facility] General Surgery [place] This note was created with the assistance of a speech recognition program. While intending to generate a timely document that accurately reflects the content of the visit, no guarantee can be provided that every grammatical or spelling mistake has been or will be identified or corrected. Thank you for your understanding. JAYME Lui 05/08/23 1135 documented in this encounter [facility] 08-14-2021 Note PROCEDURE: StyleHop Signa HDXT 1.5 Sagittal T1, T2, STIR and axial T1 and T2 contiguous and cone down images through the brain were performed with and without contrast administration. HISTORY: Tinnitus x several years. FINDINGS: Normal 7th and 8th cranial nerve complexes. No cerebellar pontine angle mass. Asymmetric aeration right medial mastoid air cells. Normal development and absence of fluid within the remainder of bilateral mastoid air cells and tympanic cavities. No acute or subacute major vessel ischemia, intracranial hemorrhage or mass effect. Normal orbital contents and paranasal sinuses. IMPRESSION: 1. Normal cerebellar pontine angles. 2. No intracranial hemorrhage or ischemia. Report reported and signed by Rock Bryson on 08/14/2021 1520 [facility] Post Production Assistant Evaluation + Plan note Future Appointments Appointment Date:04/22/2024 10:15:00 AM Scheduled Provider:Dwight MANZANO MD Location:[facility] Appointment Type:URO Office Visit [facility] Evaluation note Diagnosis Hemorrhoids, unspecified hemorrhoid type- Primary documented in this encounter [facility] SystemEvaluation note* Diagnosis Calcific Achilles tendinitis of right lower extremity- Primary Inflammatory heel pain, right Calcaneal spur, right Difficulty walking Difficulty in walking [facility] Narrative No data available for this section [facility] InstructionsNot on filedocumented in this encounter [facility] iCharts SystemProgress note No data available for this section [facility] Summary Purpose Family History No Family History Records FoundNo Family History Records Found No data available for this section No Family History Records FoundNo Family History Records Found Advance Directives No Advanced Directives Records FoundNo Advanced Directives Records FoundNo Advanced Directives Records FoundNo Advanced Directives Records Found Additional Source Comments (unrecognized sect ion and content) No Status Records FoundNo Status Records FoundNo Status Records FoundNo Status Records Found INFORMATION SOURCE (unrecogn ized section and content) DATE CREATED AUTHOR 08/15/2021 [facility] dical Specialist DATE CREATED AUTHOR AUTHOR'S ORGANIZ ATION 05/10/2023 [facility] DATE CREATED AUTHOR AUTHOR'S ORGANIZ ATION 03/08/2024 [facility] DATE CREATED AUTHOR AUTHOR'S ORGANIZ ATION 03/12/2024 [facility] dical Specialists EPIC Reason for Visit (unrecogniz ed section and content) Reason Comments Hemorrhoids Hemorrhoids, referre d by Ingrid Del Real, COMMUNICATIONS STATION MANAGER Reason Comments Foot Pain 43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 NKI. Pt states woke up one day and it was hurting. Has tried stretching, frozen water bottle massage. Relates throbbing pain. No recent xrays. SS: 9.5-10 Care Teams (unrecognized sec tion and content) Blueberry Grower Relationship Specialty Start Date End Date Zuleima Horton MD [address] [place] [address] PCP - General Family Medicine 05/08/23 [employer]berry Grower Relationship Specialty Start Date End Date Zuleima Horton MD [address] [place] [address] PCP - General Family Medicine 09/09/22 [employer]berry Grower Relationship Specialty Start Date End Date Zuleima Horton MD [address] [place], [place] [id number] PCP - General Family Medicine 09/09/22 FOR RECORDS PERTAINING TO PATIENTS WHO ARE OR HAVE BEEN ENROLLED IN A CHEMICAL DEPENDENCY/SUBSTANCEABUSE PROGRAM, SOME INFORMATION MAY BE OMITTED. This clinical summary was aggregated from multiple sources. Caution should be exercised in using it in the provision of clinical care. This summary normalizes information from multiple sources, and as a consequence, information in this document may materially change the coding, format and clinical context of patient data. In addition, data may be omitted in some cases. CLINICAL DECISIONS SHOULD BE BASED ON THE PRIMARY CLINICAL RECORDS. [employer] provides no warranty or guarantee of the accuracy or completeness of information in this document.
[2024-03-24] MEDS: LACTATED RINGER'S SOLUTION 1,000 ML 50 ML IV ×2 (13:09→16:03)
[2024-03-24] MEDS: CEFAZOLIN SODIUM 2 GM/50 ML D5W PREMIX IV (14:48)
[2024-03-24] MEDS: BACITRACIN OINTMENT 28.4 GM TUBE 1 APPLIC TOPICAL (17:00)
[2024-03-24] MEDS: MINERAL OIL LIGHT STERILE 10 ML VIAL TOPICAL (17:00)
--- NOTE | 2024-03-24 17:06 | P.URON_ITS ---
Urology Surgery Operative Note Operative Note Procedure Date: 03/24/24 Time Out Performed: yes Pre-op Diagnosis: Phimosis Post-op Diagnosis: same as pre-op Procedures performed: 1. Circumcision. Anesthesia: General-LMA Primary Surgeon: Dwight Manzano Complications: None Estimated blood loss (mL): 15 Findings: Very thick and indurated foreskin. Specimens: Foreskin. Drains: None Indications for Procedures: This gentleman was never circumcised. He is having thickening of his foreskin and tightening over his glans penis. It is painful to retract and he gets splitting and tearing with erections and sexual activity. He is desirous of circumcision. He has signed an informed consent after risks were explained. Detailed description of Procedure: The patient was brought to the operating room and placed on the operating room table in the supine position. SCDs were placed on his lower extremities and turned on and functioning during the entire case. Timeout was done by all parties in the room. We all agreed upon the patient's identification and the planned procedures for this patient. General anesthesia was then administered via LMA. The genitalia were sterilely prepped and draped in the usual fashion. I started by marking a line around the coronal sulcus on the external surface of the foreskin. With a 15 blade scalpel and made a circumscribing incision over this line. Small bleeders were coagulated with the needle tip Bovie cautery. The foreskin was then retracted over the shaft and a lying 5 mm proximal to the coronal sulcus was marked on the mucosal surface of the foreskin. A similar circumscribing incision was then made. I then sharply dissected out this sleeve of tissue circumferentially. It was then transected and amputated. The tissue was very thick and indurated and very friable. This tissue was sent for permanent sections. There was diffuse oozing as if he had been taking blood thinners. Once hemostasis was obtained we then joined the edges of the foreskin together. We placed a stay suture at the 12:00 and at the 6:00 positions. These were tagged and set aside. I then used the same 4-0 suture dipped in mineral oil and joined the edges of the foreskin in a running fashion. We had an excellent repair. Bacitracin ointment was applied over the incision. A Vaseline gauze was then applied and then we placed gauze. We then wrapped this and Coban. The [facility] then [facility] and wheeled to PACU in stable condition.
--- NOTE | 2024-03-24 17:39 | PC.NURSE ---
1735- Dr. Coon aware of blood pressure. No new orders received.
[2024-03-24] MEDS: ONDANSETRON PF 4 MG/2 ML VIAL IV (18:18)
[2024-03-24] MEDS: 0.9 % SODIUM CHLORIDE 500 ML IV (18:25)
--- NOTE | 2024-03-24 18:31 | PC.NURSE ---
Patient upto br with assist x2. Patient slightly unsteady on feet. remains in BR with patient. Patient attempting to void.
== END 2024-03-24 18:50 | disposition home or self-care (01) ==
PROVIDERS: PCP Family Medicine; Visit Provider Urology
PROC: (CPT 920; principal; 2024-03-24 14:30)
DX: N47.1 Phimosis (principal)
CPT/HCPCS: 54161; 36415; 88304; J0690; J1100; J1171; J1885; J2250; J2405; J2704; J3010